=== PATIENT | male | born 1975 ===

== ENCOUNTER 2024-07-16 09:15 | Outpatient (CLI) | payer OTHER, SELFPAY ==
--- NOTE | ~2024-07-16 | MR_ITS ---
MRI of the left knee Clinical history: Pain Technique: Coronal proton density and proton density-weighted images, sagittal proton-density and T2 fat-sat images, and axial proton-density fat-saturated images were acquired. Findings: Anterior and posterior cruciate ligaments are intact. Medial collateral ligament and the la teral collateral ligament complex are intact. Popliteus tendon is intact. There is probable horizontal tear of the posterior horn of the medial meniscus. No lateral meniscal t ear seen. Articular cartilage is well preserved throughout the knee. Bone marrow signals are intact. Extensor mechanism is intact. Minimal joint effusion present. No Watts's cyst. Impression: Horizontal tear of the posterior horn of the medial meniscus. Minimal joint effusion. Reviewed, dictated and finalized at location . Impression: Horizontal tear of the posterior horn of the medial meniscus. Minimal joint effusion.
== END 2024-07-16 09:16 | disposition home or self-care (01) ==
LOC: MICIMG 09:16
PROVIDERS: PCP Orthopaedic Surgery; Visit Provider Orthopaedic Surgery
DX: S83.242A Other tear of medial meniscus, current injury, left knee, initial encounter (principal); X58.XXXA Exposure to other specified factors, initial encounter
CPT/HCPCS: 73721